=== PATIENT | male | born 1985 | race Native Hawaiian/Other Pacific Islander ===

== ENCOUNTER → 2021-08-06 13:06 | Outpatient (CLI) | payer OTHER, MEDICAID, SELFPAY ==
[2021-08-06 21:36] LABS: Hepatitis B Surface Antigen NEGATIVE s/c (NEGATIVE)
[2021-08-06 21:44] LABS: HIV 1 & 2 Ab/Ag 4th Gen Combo NEGATIVE (NEGATIVE)
== END ==
PROVIDERS: PCP Family Medicine; Visit Provider Family Medicine
DX: Z20.828 Contact with and (suspected) exposure to other viral communicable diseases (principal); W46.1XXA Contact with contaminated hypodermic needle, initial encounter
CPT/HCPCS: 87340; 87389